=== PATIENT | male | born 1955 | race Caucasian/White ===

== ENCOUNTER 2016-09-13 09:02 | Emergency (ER) | payer MEDICARE, MEDICAID ==
[~2016-09-13] VITALS: Ht 172.7 cm; Wt 85.0 kg
[2016-09-13] MEDS ORDERED: SERT25TA PO (09:11)
[2016-09-13] MEDS ORDERED: TIOT18CA3 IH (09:11)
[2016-09-13] MEDS ORDERED: LORA0.5T2 PO (09:11)
[2016-09-13] MEDS ORDERED: PROT20 PO (09:11)
[2016-09-13] MEDS ORDERED: FURO-152 PO (09:11)
[2016-09-13] MEDS ORDERED: QUET25TA PO (09:11)
[2016-09-13] MEDS ORDERED: PLAVIX (09:11)
[2016-09-13] MEDS ORDERED: LISI2.5T47 PO (09:11)
[2016-09-13] MEDS ORDERED: ATOR10TA PO (09:11)
[2016-09-13] MEDS ORDERED: TETANUS, DIPHTHERIA, PERTUSSIS VAC/PF 0.5ML (>7YR OLD) IM ONE (09:30)
[2016-09-13] MEDS ORDERED: TRAMADOL 50MG TABLET PO ONE (11:00)
[2016-09-13 11:32] VITALS: BP 135/76
== END 2016-09-13 12:32 | disposition home or self-care (01) ==
LOC: ER 09:02
DX: S01.112A Laceration without foreign body of left eyelid and periocular area, initial encounter (principal); I10 Essential (primary) hypertension; K21.9 Gastro-esophageal reflux disease without esophagitis; F41.9 Anxiety disorder, unspecified; E78.00 Pure hypercholesterolemia, unspecified; J44.9 Chronic obstructive pulmonary disease, unspecified; F20.9 Schizophrenia, unspecified; I25.2 Old myocardial infarction; Z95.5 Presence of coronary angioplasty implant and graft; Z88.0 Allergy status to penicillin; W01.0XXA Fall on same level from slipping, tripping and stumbling without subsequent striking against object, initial encounter; Y93.89 Activity, other specified; Y92.099 Unspecified place in other non-institutional residence as the place of occurrence of the external cause; Y99.8 Other external cause status
CPT/HCPCS: 12011; 70450; 90471; 90715; 99284